=== PATIENT | female | born 1940 | race Caucasian/White ===

== ENCOUNTER 2016-07-02 13:21 | Emergency (ER) | payer MEDICARE, OTHER ==
[~2016-07-02] VITALS: Ht 162.6 cm; Wt 66.8 kg
[2016-07-02 13:28] VITALS: BP 142/86; PULSE 78; RESP 16; TEMP 97.7; O2SAT 98
[2016-07-02] MEDS ORDERED: NAPR500T PO (13:38)
[2016-07-02] MEDS ORDERED: CYCL1TAB29 PO (13:38)
--- NOTE | 2016-07-02 13:50 | PD ---
HPI Chief Complaint: Musculoskeletal Complaint Time Seen by Provider: 13:50 Travel History International Travel<30 days: No Contact w/Intl Traveler<30days: No Traveled to known affect area: No History of Present Illness HPI 76-year-old right-hand dominant female presents to the ED for evaluation of 2 week history of left upper arm and elbow pain. Rated 5/10, worsened by extension. Patient denies numbness, tingling, weakness of the left upper extremity. She can recall no acute injury. She denies previous injury to that area. Patient states that the pain originally started in her neck around 5 weeks ago. This also radiated down the left arm. She states that she went to the chiropractor and the neck and upper arm pain has resolved. She went to the acute care center was prescribed naproxen and muscle relaxers and placed in a sling. She has follow-up with an orthopedist later this month. [facility] Past Medical History Medical History: Denies Significant Hx Diminished Hearing: No Influenza Vaccination: No ?: Not Social History Alcohol Use: No Tobacco Use: No Allergies-Medications (Allergen,Severity, Reaction): Coded Allergies: No Known Allergies (Unverified , 07/02/16) Reported Meds & Prescriptions Reported Meds & Active Scripts Active Reported Naproxen 500 Mg Tab 500 Mg PO BID Flexeril (Cyclobenzaprine HCl) 10 Mg Tab 10 Mg PO TID Review of Systems Except as stated in HPI: all other systems reviewed are Neg Physical Exam Narrative GENERAL: Well-nourished, well-developed white female, sitting up on the stretcher, left arm in a sling. SKIN: Warm and dry. HEAD: Normocephalic. EYES: No scleral icterus. No injection or drainage. NECK: Supple, trachea midline. No JVD or lymphadenopathy. CARDIOVASCULAR: Regular rate and rhythm without murmurs, gallops, or rubs. RESPIRATORY: Breath sounds equal bilaterally. No accessory muscle use. GASTROINTESTINAL: Abdomen soft, non-tender, nondistended. MUSCULOSKELETAL: No cyanosis, or edema. FOCUSED LEFT UPPER EXTREMITY EXAM: 2+ radial pulse. Mild edema and tenderness to palpation, just proximal to the antecubital space, anterior aspect left arm. Patient retains flexion, extension of the elbow along with flexion, extension , pronation and supination of the left wrist. Strong finger to thumb opposition all digits. Sensation intact to light touch distally. Cap refill less than 2 seconds. BACK: Nontender without obvious deformity. No CVA tenderness. Data Data Last Documented VS Vital Signs Date Time Temp Pulse Resp B/P Pulse Ox O2 Delivery O2 Flow Rate FiO2 07/02/16 13:28 97.7 78 16 142/86 98 Orders Elbow, Complete (4 Vws) (07/02/16 13:56) [facility] Medical Decision Making Medical Screen Exam Complete: Yes Emergency Medical Condition: Yes Differential Diagnosis Tendinitis versus radial head fracture versus cervical radiculopathy versus other Narrative Course 76-year-old right-hand dominant female presents to the ED for evaluation of 2 week history of left upper arm and elbow pain. Rated 5/10, worsened by extension. Patient denies numbness, tingling, weakness of the left upper extremity. She can recall no acute injury. She denies previous injury to that area. Patient states that the pain originally started in her neck around 5 weeks ago. This also radiated down the left arm. She states that she went to the chiropractor and the neck and upper arm pain has resolved. She went to the acute care center was prescribed naproxen and muscle relaxers and placed in a sling. She has follow-up with an orthopedist later this month. Vitals reviewed. Physical exam reveals a nontoxic-appearing white female sitting up on the stretcher, left arm in a sling, in no acute distress. Focused left upper extremity exam reveals 2+ radial pulse. Mild edema and tenderness to palpation, just proximal to the antecubital space, anterior aspect left arm. Patient retains flexion, extension of the elbow along with flexion, extension, pronation and supination of the left wrist. Strong finger to thumb opposition all digits. Sensation intact to light touch distally. Cap refill less than 2 seconds. X-ray of the left elbow negative per radiology read. I suspect this is tendinitis. I instructed the patient to continue with [id number] anti- inflammatory medications and follow-up with the orthopedist as planned. Return to normal, gentle activities as tolerated. She indicated understanding of instructions and is amenable to plan of care. This patient is stable and discharged home. Diagnosis Primary Impression: Left elbow pain Additional Impression: Left elbow tendinitis Referrals: Orthopedist Patient Instructions: General Instructions, Tennis Elbow (ED), Tennis Elbow Exercises (GEN) Additional Instructions: Rest, ice, elevate the extremity. Apply ice no longer than 10-15 minutes per hour a few times a day. 600 mg ibuprofen up to 3 times a day for pain and inflammation Return to normal, gentle activity as tolerated. Follow up with orthopedist as planned. Return to the ED for any urgent or emergent medical condition. Disposition: 01 DISCHARGE HOME Condition: Stable Tana Machuca Jul 02, 2016 13:50
--- NOTE | 2016-07-02 14:20 | RADHPO ---
EXAM DATE/TIME: 07/02/2016 14:02 [place] COMPARISON: No previous studies available for comparison. INDICATIONS : Pain 360 degrees around left elbow for 5 weeks, denies trauma. MEDICAL HISTORY : None. SURGICAL HISTORY : None. ENCOUNTER: Initial ACUITY: 1 month PAIN SCORE: 10/10 LOCATION: Left elbow FINDINGS: Multiple view examination of the left elbow demonstrates no soft tissue swelling, joint effusion, or fracture. The osseous structures are in normal alignment. Bony mineralization is normal. CONCLUSION: 1. Negative examination. Deandre Andrea MD on July 02, 2016 at 14:18 Board Certified Radiologist. This report was verified electronically.
== END 2016-07-02 14:50 | disposition home or self-care (01) ==
LOC: PHEFT 13:21
DX: M25.522 Pain in left elbow (principal); M25.552 Pain in left hip; M77.8 Other enthesopathies, not elsewhere classified
CPT/HCPCS: 73080; 99283